=== PATIENT | male | born 1965 | race Hispanic/Latino ===

== ENCOUNTER 2020-04-09 09:10 | Emergency (ER) | payer SELFPAY ==
[2020-04-10 00:40] LABS: SARS-CoV-2 MS2 Positive; SARS-CoV-2 N Gene Positive; SARS-CoV-2 S Gene Positive; SARS-CoV-2 by NAA DETECTED (NotDetected); SARS-CoV-2 orf1ab Positive
== END 2020-04-09 10:00 | disposition home or self-care (01) ==
LOC: NAV ERS 09:10
DX: U07.1 COVID-19 (principal); E11.9 Type 2 diabetes mellitus without complications; I10 Essential (primary) hypertension; E78.5 Hyperlipidemia, unspecified
CPT/HCPCS: 87635; 99283; U0003